=== PATIENT | female | born 1980 | race African-American/Black ===

== ENCOUNTER 2022-08-14 20:52 | Emergency (ER) | payer MEDICARE, OTHER ==
[~2022-08-14] VITALS: Ht 149.9 cm; Wt 88.6 kg
[2022-08-14 20:56] VITALS: BP 161/103
--- NOTE | 2022-08-14 21:01 | NUR ---
PT TO LOBBY
[2022-08-14 21:40] LABS: BASOPHILS # (AUTO) 0.1 K/uL (0.00-0.22); BASOPHILS % (AUTO) 0.7 % (0.0-2.0); EOSINOPHILS # (AUTO) 0.2 K/uL (0-0.4); EOSINOPHILS % (AUTO) 1.6 % (0.0-4.0); HEMATOCRIT 40.2 % (36-48); HEMOGLOBIN 13.7 g/dL (12.0-16.0); LYMPHOCYTES # (AUTO) 3.3 K/uL (2.5-16.5); LYMPHOCYTES % (AUTO) 34.6 % (20.5-51.1); MEAN CORPUSCULAR HEMOGLOBIN 31 pg (27-31); MEAN CORPUSCULAR HGB CONC 34 g/dL (33-37); MEAN CORPUSCULAR VOLUME 90.1 fL (80-94); MONOCYTES # (AUTO) 1.1 K/uL (0.8-1.0); MONOCYTES % (AUTO) 11.7 % (1.7-9.3); NEUTROPHILS # (AUTO) 4.9 K/uL (1.8-7.7); NEUTROPHILS % (AUTO) 51.4 % (42.2-75.2); PLATELET COUNT (AUTO) 473 K/uL (140-450); RED BLOOD CELL COUNT(AUTO) 4.46 MIL/uL (4.20-5.40); RED CELL DISTRIBUTION WIDTH 14.1 % (11.6-13.7); WHITE BLOOD COUNT (AUTO) 9.5 K/uL (4.8-10.8)
[2022-08-14 22:02] LABS: ALBUMIN 3.4 g/dL (3.4-5.0); ANION GAP 11.1 (8-16); ASPARTATE AMINOTRANSFERASE 17 U/L (15-37); CARBON DIOXIDE 26.5 mmol/L (21-32); CHLORIDE 103 mmol/L (98-107); CREATININE 0.9 mg/dL (0.6-1.3); GFR ARICAN-AMERICAN 88 mL/min (>90); GLUCOSE 101 mg/dL (74-106); POTASSIUM 3.6 mmol/L (3.5-5.1); SODIUM SERUM 137 mmol/L (136-145); TOTAL BILIRUBIN 0.3 mg/dL (0.0-1.0); UREA NITROGEN, BLOOD 16 mg/dL (7-18)
--- NOTE | 2022-08-15 00:25 | NUR ---
PT TO BED 1
--- NOTE | 2022-08-15 01:00 | NUR ---
TRACY MAKI AT BEDSIDE
[2022-08-15] MEDS ORDERED: LIDOCAINE 5% 1 EA PATCH TP STA (01:02)
[2022-08-15] MEDS ORDERED: ACETAMINOPHEN EXTRA STRENGTH 500 MG TAB PO ONE (01:05)
[2022-08-15] MEDS ORDERED: ALUMINUM HYD/MAG/SIMETHICONE 30 ML UDC PO ONE (01:05)
--- NOTE | 2022-08-15 01:08 | NUR ---
Female Vice President Payment accompanied female patient for BREAST EXAM.
--- NOTE | 2022-08-15 02:00 | NUR ---
Patient A/Ox4, chest raise and fall symmetrical, no s/s of distress.
[2022-08-15] MEDS ORDERED: KETOROLAC 15 MG/ML VIAL IM ONE (02:20)
--- NOTE | 2022-08-15 02:30 | NUR ---
Note chrissy in EDM - 08/15/22 at 0259 by [email or web address] Patient discharged with v/s stable. Written and verbal after care instructions given and explained. Patient alert, oriented and verbalized understanding of instructions. Ambulatory with steady gait. All questions addressed prior to discharge. ID band removed. Patient advised to follow up with PMD. Rx of Lidocaine given. Patient educated on indication of medication including possible reaction and side effects. Opportunity to ask questions provided and answered.
[2022-08-15] MEDS ORDERED: LID5T TP (02:33)
[2022-08-15 02:55] VITALS: BP 137/74
--- NOTE | 2022-08-15 02:59 | NUR ---
Patient discharged with v/s stable. Written and verbal after care instructions given and explained. Patient alert, oriented and verbalized understanding of instructions. Ambulatory with steady gait. All questions addressed prior to discharge. ID band removed. Patient advised to follow up with PMD. Rx of Lidocaine given. Patient educated on indication of medication including possible reaction and side effects. Opportunity to ask questions provided and answered.
== END 2022-08-15 02:59 | disposition home or self-care (01) ==
LOC: MED 20:52
DX: R07.9 Chest pain, unspecified (principal); N64.4 Mastodynia; R51.9 Headache, unspecified
CPT/HCPCS: 36415; 70450; 71045; 80053; 81025; 84484; 85025; 93005; 96372; 99285; J1885